=== PATIENT | male | born 1975 ===

== ENCOUNTER 2025-05-22 07:00 | Day surgery (SDC) | payer OTHER ==
[2025-05-15 08:12] VITALS: BP 139/85
[~2025-05-22] VITALS: Ht 165.1 cm; Wt 69.9 kg
[~2025-05-22 07:00] MED LIST: AMBIEN10 MG PO; GABAPENTIN800 M1 PO; GLIPIZIDE XL5 MG PO; NAPR500T14 PO; SIMVASTATIN10 MG PO
[2025-05-22] MEDS ORDERED: CEFAZOLIN SODIUM 1,000 MG VIAL IV ONE (12:45)
[2025-05-22] MEDS ORDERED: BUPIVACAINE HCL 30 ML VIAL IJ ONE (12:45)
[2025-05-22] MEDS ORDERED: MORPHINE SULFATE 4 MG/ML VIAL IV ONE (14:30)
== END 2025-05-22 15:10 | disposition home or self-care (01) ==
LOC: CIR.AMB 07:00
PROVIDERS: ATTEND Orthopaedic Surgery Hand Surgery
DX: D21.11 Benign neoplasm of connective and other soft tissue of right upper limb, including shoulder (principal); R22.31 Localized swelling, mass and lump, right upper limb